=== PATIENT | male | born 1990 | race Hispanic/Latino ===

== ENCOUNTER 2017-09-13 15:14 | Emergency (ER) | payer SELFPAY ==
[2017-09-13 17:08] LABS: Urine Bacteria NONE SEEN /HPF (NONE SEEN); Urine Culture Reflex Order NOT NEEDED; Urine RBC NONE SEEN /HPF (NONE SEEN)
[2017-09-13] MEDS ORDERED: NA CHLORIDE 0.9% 1,000 ML ONE (17:08)
[2017-09-13 17:10] LABS: Urine Blood NEGATIVE (NEG); Urine Glucose NEGATIVE (NEG); Urine Protein NEGATIVE (NEG); Urine pH 7.5 (5.0-7.0)
[2017-09-13] MEDS ORDERED: LORazepam 2 MG/ML VIAL ONE ×2 (17:10→18:15)
[2017-09-13 17:14] LABS: Absolute Lymphocytes (CBC) 2.6 K/uL (0.7-4.9); Absolute Monocytes 0.8 K/uL (0.1-1.3); Absolute Neutrophil 3.9 K/uL (1.8-8.0); Basophils % 0.7 % (0-1.3); Eosinophils % 1.1 % (0-4.4); Hematocrit 40.8 % (39.6-49.0); Lymphocytes % 34.8 % (15.3-44.8); MCH 30.8 pg (27.0-35.0); MCV 94.1 fL (80-100); MPV 8.5 fL (7.6-11.3); Monocytes % 10.2 % (3.3-12.3); RBC Red Blood Cell Count 4.33 M/uL (4.33-5.43)
[2017-09-13 17:24] LABS: Bicarbonate 27 mEq/L (21-31); Glucose Level 88 mg/dL (65-120); Lipase 17 U/L (22-51); Potassium 3.7 mEq/L (3.6-5.0); Sodium Level 134 mEq/L (135-145)
[2017-09-13 17:30] LABS: ALT/SGPT 13 IU/L (10-60); AST/SGOT 19 IU/L (10-42); Albumin 3.8 g/dL (3.2-5.5); Alkaline Phosphatase 96 IU/L (42-121); Amylase Level 43 U/L (28-100); BUN Blood Urea Nitrogen 11 mg/dL (6-20); Bilirubin Direct 0.1 mg/dL (0-0.2); Bilirubin Total 0.6 mg/dL (0.3-1.2); Protein, Total 7.4 g/dL (6.0-8.3)
[2017-09-13] MEDS ORDERED: HYDROCODONE/APAP 10/325 TAB ONE (18:03)
--- NOTE | 2017-09-13 18:43 | ER ---
Nurse's Notes [facility] Name: Victor Hugo Weir Age: 27 yrs Sex: Male : 1990 Arrival Date: 09/13/2017 Time: 15:17 Bed 17 Private MD: None, None Diagnosis: Anxiety disorder, unspecified;Panic disorder [episodic paroxysmal anxiety] without agoraphobia Presentation: 09/13 15:26 Presenting complaint: Patient states: Low back pain for 3 days. Denies burning with aj urination. Transition of care: patient was not received from another setting of care. Onset of symptoms was September 13, 2017. Care prior to arrival: None. 15:26 Method Of Arrival: Ambulatory aj 15:26 Acuity: CHANTAL 4 aj 17:00 Initial Sepsis Screen: Does the patient meet any 2 criteria? No. Patient's initial em sepsis screen is negative. Does the patient have a suspected source of infection? No. Patient's initial sepsis screen is negative. Triage Assessment: 15:27 General: Appears in no apparent distress. uncomfortable, Behavior is calm, cooperative, aj appropriate for age. Pain: Complains of pain in low back area. Neuro: Level of Consciousness is awake, alert, obeys commands, Oriented to person, place, time, situation, Appropriate for age. Respiratory: Airway is patent Respiratory effort is even, unlabored, Respiratory pattern is regular, symmetrical. : Reports pain in lower back. Derm: Skin is intact, is healthy with good turgor, Skin is pink, warm \T\ dry. normal. Musculoskeletal: Circulation, motion, and sensation intact. Range of motion: intact in all extremities. Historical: - Allergies: 15:27 No Known Allergies; aj - Home Meds: 15:27 Alprazolam Oral [Active]; aj - PMHx: 15:27 Anxiety; Hypertension; aj - PSHx: 15:27 None; aj - Immunization history:: Adult Immunizations up to date. - Social history:: Smoking status: Patient/guardian denies using tobacco. - Family history:: not pertinent. - Hospitalizations: : No recent hospitalization is reported. Screenin:00 Abuse screen: Denies threats or abuse. Nutritional screening: No deficits noted. em Tuberculosis screening: No symptoms or risk factors identified. Fall Risk None identified. Assessment: 16:44 General: Appears in no apparent distress. uncomfortable, Behavior is cooperative, em anxious. Pain: Complains of pain in low back area Pain does not radiate. Pain currently is 8 out of 10 on a pain scale. Neuro: Level of Consciousness is awake, alert, obeys commands, Oriented to person, place, time, situation, Denies paresthesias. Cardiovascular: Capillary refill < 3 seconds Patient's skin is warm and dry. Respiratory: Airway is patent Respiratory effort is even, unlabored, Respiratory pattern is regular, symmetrical. GI: Abdomen is flat, Patient currently denies nausea, vomiting. : Reports inability to void, Denies burning with urination. EENT: No signs and/or symptoms were reported regarding the EENT system. Derm: Skin is intact, Skin is pink, warm \T\ dry. Musculoskeletal: Range of motion: intact in all extremities. 16:44 Reassessment: Patient appears in no apparent distress at this time. Patient and/or em family updated on plan of care and expected duration. Pain level reassessed. pt appears anxious, significant other at bedside. 17:00 Reassessment: Patient appears in no apparent distress at this time. I agree with the iw assessment above by Jeremy Calderon LVN. 17:50 Reassessment: Patient appears in no apparent distress at this time. Patient and/or em family updated on plan of care and expected duration. Pain level reassessed. c/o chest tightness, appears anxious, Abdias, AIRCRAFT CAPTAIN notified, new orders received. 18:40 Reassessment: Patient appears in no apparent distress at this time. Patient and/or em family updated on plan of care and expected duration. Pain level reassessed. Patient is alert, oriented x 3, equal unlabored respirations, skin warm/dry/pink. Vital Signs: 15:27 BP 142 / 76; Pulse 80; Resp 17; Temp 98.6; Pulse Ox 99% on R/A; Weight 79.38 kg; Height aj 6 ft. 4 in. (193.04 cm); 17:25 BP 131 / 62; Pulse 62; Resp 18; Pulse Ox 100% on R/A; em 15:27 Body Mass Index 21.30 (79.38 kg, 193.04 cm) aj ED Course: 15:17 Patient arrived in ED. mr 15:17 None, None is Private Physician. mr 15:27 Triage completed. aj 15:27 Arm band placed on left wrist. Patient placed in waiting room, Patient notified of wait aj time. 16:08 [facility] Calero [facility]. ka 16:09 Yuan Aparicio MD is Attending Physician. ka 16:31 Jeremy Calderon LVN is Primary Nurse. em 17:00 Patient has correct armband on for positive identification. Placed in gown. Bed in low em position. Call light in reach. Side rails up X 1. Adult w/ patient. 17:00 No provider procedures requiring assistance completed. Initial lab(s) drawn, by fl, em sent to lab. Inserted saline lock: 20 gauge in right antecubital area, using aseptic technique. Blood collected. 19:24 Primary Nurse role handed off by Jeremy Calderon LVN rg2 Administered Medications: 17:20 Drug: Ativan 1 mg Route: IVP; Site: right antecubital; hj 18:54 Follow up: Response: No adverse reaction em 17:20 Drug: NS 0.9% 1000 ml Route: IV; Rate: 1 bolus; Site: right antecubital; em 18:55 Follow up: IV Status: Completed infusion; IV Intake: 1000ml em 18:40 Drug: Ativan 1 mg Route: IVP; Site: right antecubital; em 18:55 Follow up: Response: No adverse reaction; Marked relief of symptoms em 18:54 Not Given (Patient Refused): [place] 10 mg-325 mg 1 tabs PO once em Intake: 18:55 IV: 1000ml; Total: 1000ml. em Outcome: 18:43 Discharge ordered by . ka 19:54 Patient left the ED. Signatures: Miriam Vines rg2 Nirmala White RN RN aj Vern, Katherine, FNP FNP kav Rivera, Maria mr Ivy Serrato RN RN Jeremy Calderon LVN LVN em Gina Jolly RN RN Luis Manuel Damico RN RN
--- NOTE | 2017-09-13 18:43 | EDPHYS ---
Physician Documentation [facility] Name: Victor Hugo Weir Age: 27 yrs Sex: Male : 1990 Arrival Date: 09/13/2017 Time: 15:17 Bed 17 Private MD: None, None ED Physician Yuan Aparicio HPI: 09/13 16:09 This 27 yrs old Male presents to ER via Ambulatory with complaints of Back kav Pain. 18:35 The patient complains of pain in the left low back and left mid back. The pain does not kav radiate. Onset: The symptoms/episode began/occurred acutely, 2 day(s) ago. Modifying factors: The symptoms are alleviated by nothing. the symptoms are aggravated by movement. Associated signs and symptoms: The patient has no apparent associated signs or symptoms, Pertinent negatives: diarrhea, dizziness, dysuria, fever, urinary frequency, headache, hematuria, nausea, pain radiating to the lower extremities, vomiting. Severity of pain: At its worst the pain was a 10 / 10. The patient has experienced similar episodes in the past, chronically. The patient has not recently seen a physician. patient reports acute onset of left flank pain and c/o anxiety since 2014. he reportedly takes no medications for his chronic anxiety. he reports that his "...mother gives him some of her alprazolam 2 mg po prn for c/o anxiety/panic attacks". patient refused norco for pain.. Historical: - Allergies: 15:27 No Known Allergies; aj - Home Meds: 15:27 Alprazolam Oral [Active]; aj - PMHx: 15:27 Anxiety; Hypertension; aj - PSHx: 15:27 None; aj - Immunization history:: Adult Immunizations up to date. - Social history:: Smoking status: Patient/guardian denies using tobacco. - Family history:: not pertinent. - Hospitalizations: : No recent hospitalization is reported. ROS: 18:37 Constitutional: Negative for fever, chills, and weight loss, Eyes: Negative for injury, kav pain, redness, and discharge, ENT: Negative for injury, pain, and discharge, Neck: Negative for injury, pain, and swelling, Cardiovascular: Negative for chest pain, palpitations, and edema, Respiratory: Negative for shortness of breath, cough, wheezing, and pleuritic chest pain, Abdomen/GI: Negative for abdominal pain, nausea, vomiting, diarrhea, and constipation, Back: Negative for injury and pain, MS/Extremity: Negative for injury and deformity, Skin: Negative for injury, rash, and discoloration, Neuro: Negative for headache, weakness, numbness, tingling, and seizure, Allergy/Immunology: Negative for hives, rash, and allergies, Endocrine: Negative for neck swelling, polydipsia, polyuria, polyphagia, and marked weight changes, Hematologic/Lymphatic: Negative for swollen nodes, abnormal bleeding, and unusual bruising. 18:37 : Positive for flank pain, Negative for injury or acute deformity, urinary symptoms, urinary frequency, small amounts, hematuria, pelvic pain, burning with urination, difficulty urinating, bladder incontinence, foul smelling urine, penile discharge, penile pain, testicular pain 18:37 Psych: Positive for anxiety, Negative for depression, drug dependence, alcohol dependence, auditory hallucinations, visual hallucinations, homicidal ideation, insomnia, suicide gesture, suicidal ideation. Exam: 18:37 Constitutional: This is a well developed, well nourished patient who is awake, alert, kav and in no acute distress. Head/Face: Normocephalic, atraumatic. Eyes: Pupils equal round and reactive to light, extra-ocular motions intact. Lids and lashes normal. Conjunctiva and sclera are non-icteric and not injected. Cornea within normal limits. Periorbital areas with no swelling, redness, or edema. ENT: Nares patent. No nasal discharge, no septal abnormalities noted. Tympanic membranes are normal and external auditory canals are clear. Oropharynx with no redness, swelling, or masses, exudates, or evidence of obstruction, uvula midline. Mucous membranes moist. Neck: Trachea midline, no thyromegaly or masses palpated, and no cervical lymphadenopathy. Supple, full range of motion without nuchal rigidity, or vertebral point tenderness. No Meningismus. Chest/axilla: Normal chest wall appearance and motion. Nontender with no deformity. No lesions are appreciated. Cardiovascular: Regular rate and rhythm with a normal S1 and S2. No gallops, murmurs, or rubs. Normal PMI, no JVD. No pulse deficits. Respiratory: Lungs have equal breath sounds bilaterally, clear to auscultation and percussion. No rales, rhonchi or wheezes noted. No increased work of breathing, no retractions or nasal flaring. Abdomen/GI: Soft, non-tender, with normal bowel sounds. No distension or tympany. No guarding or rebound. No evidence of tenderness throughout. Skin: Warm, dry with normal turgor. Normal color with no rashes, no lesions, and no evidence of cellulitis. MS/ Extremity: Pulses equal, no cyanosis. Neurovascular intact. Full, normal range of motion. Neuro: Awake and alert, GCS 15, oriented to person, place, time, and situation. Cranial nerves II-XII grossly intact. Motor strength 5/5 in all extremities. Sensory grossly intact. Cerebellar exam normal. Normal gait. 18:37 Back: pain, that is severe, of the left low back and left mid back, ROM is normal, normal spinal alignment noted, muscle spasm, Straight leg raises: 18:37 : ka 18:37 Psych: Behavior/mood is anxious, uncooperative. Vital Signs: 15:27 BP 142 / 76; Pulse 80; Resp 17; Temp 98.6; Pulse Ox 99% on R/A; Weight 79.38 kg; Height aj 6 ft. 4 in. (193.04 cm); 17:25 BP 131 / 62; Pulse 62; Resp 18; Pulse Ox 100% on R/A; em 15:27 Body Mass Index 21.30 (79.38 kg, 193.04 cm) MDM: 18:37 Data reviewed: vital signs, nurses notes, lab test result(s). ka 18:43 Medical screening is not applicable. formerly [facility] 09/13 16:47 Order name: Urine Dipstick--Ancillary (enter results); Complete Time: 18:32 bd 09/13 18:32 Interpretation: Normal except: UPH 7.5. 09/13 16:53 Order name: Amylase, Serum; Complete Time: 18:32 iw 09/13 18:34 Interpretation: Within normal limits. 09/13 16:53 Order name: Basic Metabolic Panel; Complete Time: 18:32 iw 09/13 18:32 Interpretation: NA 134. 09/13 16:53 Order name: CBC with Diff; Complete Time: 18:32 iw 09/13 18:33 Interpretation: Normal except: HGB 13.3. 09/13 16:53 Order name: Creatinine for Radiology; Complete Time: 18:32 09/13 18:34 Interpretation: Within normal limits. formerly [facility] 09/13 16:53 Order name: Hepatic Function; Complete Time: 18:32 09/13 18:34 Interpretation: Normal except: GLOB 3.6. formerly [facility] 09/13 16:09 Order name: Urine Dipstick-Ancillary (obtain specimen); Complete Time: 16:50 formerly [facility] 09/13 16:53 Order name: Lipase; Complete Time: 18:32 09/13 18:34 Interpretation: LIP 17. formerly [facility] 09/13 16:53 Order name: Urine Microscopic Only; Complete Time: 18:32 09/13 16:53 Order name: IV Saline Lock; Complete Time: 17:20 09/13 16:53 Order name: Labs collected and sent; Complete Time: 17:20 iw Administered Medications: 17:20 Drug: Ativan 1 mg Route: IVP; Site: right antecubital; hj 18:54 Follow up: Response: No adverse reaction em 17:20 Drug: NS 0.9% 1000 ml Route: IV; Rate: 1 bolus; Site: right antecubital; em 18:55 Follow up: IV Status: Completed infusion; IV Intake: 1000ml em 18:40 Drug: Ativan 1 mg Route: IVP; Site: right antecubital; em 18:55 Follow up: Response: No adverse reaction; Marked relief of symptoms em 18:54 Not Given (Patient Refused): [place] 10 mg-325 mg 1 tabs PO once em Disposition: 09/13/17 18:43 Discharged to Home. Impression: Anxiety disorder, unspecified, Panic disorder [episodic paroxysmal anxiety] without agoraphobia. - Condition is Stable. - Discharge Instructions: Social Anxiety Disorder, Panic Attacks, [id number]. - Prescriptions for Ativan 2 mg Oral Tablet - take 1 tablet by ORAL route every 8 hours As needed; 6 tablet. - Medication Reconciliation Form, Thank You Letter, Antibiotic Education, Prescription Opioid Use, Work release form form. - Follow up: Private Physician; When: 5 - 6 days; Reason: If symptoms return, Recheck today's complaints, Continuance of care, Re-evaluation by your physician. - Problem is chronic. - Symptoms have improved. Addendum: 09/17/2017 07:10 Co-signature as Attending Physician, Yuan Aparicio MD. r n Signatures: Dispatcher [employer] Nirmala Lane, RN RN Germaine De Jesus, TRAFFIC ENGINEERING DIRECTOR TRAFFIC ENGINEERING DIRECTOR Ivy Preston RN Jeremy Paulino, ENGLISH COMPOSITION TEACHER ENGLISH COMPOSITION TEACHER Gina Cheung, RN Yuan Pichardo MD MD rn Joaquin, Henry RN DESTINEY Corrections: (The following items were deleted from the chart) 09/13 16:50 16:09 Urine Test ordered. kav em 18:33 18:32 Normal except: NA 134. ishanv ka 18:33 18:33 Within normal limits. harjit olmstead 19:54 18:43 09/13/2017 18:43 Discharged to Home. Impression: Anxiety disorder, unspecified; fc Panic disorder [episodic paroxysmal anxiety] without agoraphobia. Condition is Stable. Forms are Medication Reconciliation Form, Thank You Letter, Antibiotic Education, Prescription Opioid Use. Follow up: Private Physician; When: 5 - 6 days; Reason: If symptoms return, Recheck today's complaints, Continuance of care, Re-evaluation by your physician. Problem is chronic. Symptoms have improved. kav
== END 2017-09-13 19:54 | disposition home or self-care (01) ==
LOC: ER 15:14
DX: F41.0 Panic disorder [episodic paroxysmal anxiety] (principal); I10 Essential (primary) hypertension
CPT/HCPCS: 36415; 80048; 80076; 81003; 81015; 82150; 83690; 85025; 96361; 96374; 99283; J7030

== ENCOUNTER 2022-06-23 09:49 | Emergency (ER) | payer OTHER ==
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
[2022-06-23 10:45] VITALS: BP 137/79; O2SAT 100
== END 2022-06-23 10:40 | disposition home or self-care (01) ==
LOC: ER 09:49
DX: M25.511 Pain in right shoulder (principal); M54.2 Cervicalgia; V49.40XA Driver injured in collision with unspecified motor vehicles in traffic accident, initial encounter; I10 Essential (primary) hypertension
CPT/HCPCS: 99281